=== PATIENT | female | born 1990 | race Two or more races ===

== ENCOUNTER 2024-05-06 09:18 | Outpatient (CLI) | payer OTHER, SELFPAY ==
--- NOTE | ~2024-05-06 | US_ITS ---
Pelvic ultrasound. Clinical History: First trimester , amenorrhea Technique: Realtime transabdominal and transvaginal scanning of the pelvis was performed. Color flow Doppler and Doppler spectral analysis were performed. Findings: The uterus is anteverted, and contains an early intrauterine gestation. [place]-rump length o f 4 mm corresponds to an estimated gestational age of 6 weeks 1 day. heart rate is 113 bpm.. The right ovary measures 6.4 x 4.4 x 4.4 cm. Simple right ovarian cyst measures 2.8 cm in diameter. The left ovary is not visualized. No significant left ovarian or adnexal mass is seen. There is no evidence of free fluid in the cul de sac. Impression: Live intrauterine gestation, with estimated gestational age of 6 weeks 1 day. heart rate is 113 bpm. Reviewed, dictated and finalized at [facility]. Impression: Live intrauterine gestation, with estimated gestational age of 6 weeks 1 day. F etal heart rate is 113 bpm.
== END 2024-05-06 09:19 | disposition home or self-care (01) ==
LOC: MICIMG 09:20
PROVIDERS: PCP Obstetrics & Gynecology; Visit Provider Obstetrics & Gynecology
DX: N18.2 Chronic kidney disease, stage 2 (mild) (principal)
CPT/HCPCS: 76801; 76817

== ENCOUNTER 2024-05-16 10:29 | Outpatient (CLI) | payer OTHER, SELFPAY ==
[2024-05-16 11:57] LABS: HIV 1/2 Ab P24 Ag Result Negative (Negative)
[2024-05-16 12:05] LABS: Hepatitis B Surface Antigen Negative (Negative)
[2024-05-16 12:10] LABS: Hepatitis B Surface Antigen 0.09 S/C; Rubella IgG Antibody > 110.0 IU/ML
[2024-05-16 17:54] LABS: Rapid Plasma Reagin Non-Reactive (NonReactive)
[2024-05-17 12:52] LABS: Varicella IgG Antibody <1.00 S/CO
== END 2024-05-16 10:30 | disposition home or self-care (01) ==
LOC: ANHLAB 10:34
PROVIDERS: PCP Obstetrics & Gynecology; Visit Provider Obstetrics & Gynecology
DX: N91.2 Amenorrhea, unspecified (principal)
CPT/HCPCS: 36415; 81220; 81329; 85660; 86592; 86644; 86703; 86762; 86787; 86850; 86900; 86901; 87086; 87340; G0432

== ENCOUNTER 2024-09-03 10:19 | Outpatient (CLI) | payer OTHER, SELFPAY ==
[2024-09-03 12:00] LABS: Glucose 1 Hour PP 50gm Dose 120 mg/dL
[2024-09-03 12:13] LABS: Basophils Percent Auto 0.1 % (0.2-1.2); Eosinophils Absolute Auto 0.1 K/mm3 (0-0.3); Eosinophils Percent Auto 0.5 % (0-4.4); Hematocrit 37.4 % (37.0-47.0); Immature Granulocyte Absolute 0.06 K/mm3 (0.00-0.031); Immature Granulocyte Percent A 0.6 % (0-0.5); Lymphocytes Absolute Auto 1.75 K/mm3 (0.9-3.2); Lymphocytes Percent Auto 18.3 % (18.3-44.2); Mean Corpuscular HGB Conc 32.1 g/dl (32-36); Mean Corpuscular Hemoglobin 29.2 pg (26-34); Mean Platelet Volume 10.9 fl (7.4-10.4); Monocytes Absolute Auto 0.4 K/mm3 (0.1-0.6); Neutrophils Absolute Auto 7.3 K/mm3 (1.3-6.7); Neutrophils Percent Auto 76.5 % (45.5-73.1); Platelet Count Result 227 k/mm3 (150-375); Red Blood Count 4.11 M/mm3 (4.2-5.4); White Blood Count 9.6 K/mm3 (4.5-10.0)
== END 2024-09-03 10:20 | disposition home or self-care (01) ==
LOC: ANHLAB 10:20
PROVIDERS: Visit Provider Obstetrics & Gynecology
DX: N91.2 Amenorrhea, unspecified (principal)
CPT/HCPCS: 36415; 82947; 85025; 86747

== ENCOUNTER 2024-10-10 10:05 | Outpatient (CLI) | payer OTHER, SELFPAY ==
[2024-10-10 11:51] LABS: Basophils Percent Auto 0.2 % (0.2-1.2); Eosinophils Percent Auto 0.3 % (0-4.4); Hematocrit 36.2 % (37.0-47.0); Hemoglobin 11.9 g/dL (12.0-15.0); Immature Granulocyte Absolute 0.07 K/mm3 (0.00-0.031); Immature Granulocyte Percent A 0.7 % (0-0.5); Lymphocytes Absolute Auto 1.67 K/mm3 (0.9-3.2); Lymphocytes Percent Auto 17.4 % (18.3-44.2); Mean Corpuscular HGB Conc 32.9 g/dl (32-36); Mean Corpuscular Hemoglobin 29.5 pg (26-34); Mean Corpuscular Volume 89.6 fl (80-100); Mean Platelet Volume 10.9 fl (7.4-10.4); Monocytes Absolute Auto 0.3 K/mm3 (0.1-0.6); Monocytes Percent Auto 3.1 % (2.6-8.5); Neutrophils Absolute Auto 7.5 K/mm3 (1.3-6.7); Neutrophils Percent Auto 78.3 % (45.5-73.1); Platelet Count Result 200 k/mm3 (150-375); Red Blood Count 4.04 M/mm3 (4.2-5.4); Red Cell Distribution Width 14.6 % (11.5-14.5); White Blood Count 9.6 K/mm3 (4.5-10.0)
[2024-10-10 11:53] LABS: Glucose 1 Hour PP 50gm Dose 132 mg/dL
[2024-10-10 12:52] LABS: HIV 1/2 Ab P24 Ag Result Negative (Negative)
[2024-10-10 13:34] LABS: Syphilis IgG/IgM Antibody Negative (Negative)
== END 2024-10-10 10:06 | disposition home or self-care (01) ==
LOC: ANHLAB 10:06
PROVIDERS: Visit Provider Obstetrics & Gynecology
DX: Z34.90 Encounter for supervision of normal pregnancy, unspecified, unspecified trimester (principal)
CPT/HCPCS: 36415; 82947; 85025; 86592; 86593; 86703; G0432

== ENCOUNTER 2024-12-24 09:09 | Outpatient (CLI) | payer OTHER, SELFPAY ==
[2024-12-24 09:58] LABS: Basophils Percent Auto 0.1 % (0.2-1.2); Eosinophils Percent Auto 0.3 % (0-4.4); Hematocrit 36.9 % (37.0-47.0); Immature Granulocyte Absolute 0.05 K/mm3 (0.00-0.031); Immature Granulocyte Percent A 0.5 % (0-0.5); Lymphocytes Absolute Auto 1.81 K/mm3 (0.9-3.2); Lymphocytes Percent Auto 19.7 % (18.3-44.2); Mean Corpuscular HGB Conc 32.5 g/dl (32-36); Mean Corpuscular Hemoglobin 28.8 pg (26-34); Mean Corpuscular Volume 88.5 fl (80-100); Mean Platelet Volume 10.8 fl (7.4-10.4); Monocytes Absolute Auto 0.5 K/mm3 (0.1-0.6); Neutrophils Absolute Auto 6.9 K/mm3 (1.3-6.7); Neutrophils Percent Auto 74.4 % (45.5-73.1); Platelet Count Result 183 k/mm3 (150-375); Red Blood Count 4.17 M/mm3 (4.2-5.4); Red Cell Distribution Width 15.7 % (11.5-14.5); White Blood Count 9.2 K/mm3 (4.5-10.0)
[2024-12-24 11:19] LABS: Syphilis IgG/IgM Antibody Negative (Negative)
[2024-12-24 11:21] LABS: HIV 1/2 Ab P24 Ag Result Negative (Negative)
== END 2024-12-24 09:10 | disposition home or self-care (01) ==
PROVIDERS: Visit Provider Obstetrics & Gynecology
DX: Z34.93 Encounter for supervision of normal pregnancy, unspecified, third trimester (principal); Z3A.00 Weeks of gestation of pregnancy not specified
CPT/HCPCS: 36415; 85025; 86593; 86703; 86850; 86900; 86901; G0432

== ENCOUNTER 2024-12-25 09:27 | Inpatient (IN) | payer OTHER, SELFPAY ==
[2024-12-25] VITALS (53 sets, daily range): BP systolic 79–128; BP diastolic 40–78; PULSE 40–149; RESP 16–20; TEMP 36.1–36.4; O2SAT 91–100; BMI 45.3
[2024-12-25] MEDS: ACETAMINOPHEN 500 MG TABLET 1000 MG PO (10:21)
[2024-12-25] MEDS: LACTATED RINGERS 1,000 ML 125 ML IV CONT ×2 (10:40→11:52)
--- NOTE | 2024-12-25 10:48 | LDADM ---
This patient, Deanne Noyola, was admitted to Labor/Delivery/Recovery 120 on 12/25/24 at 09:27. Plans for labor, pain management and were discussed with patient. Patient/family oriented to hospital policies and general routines including ID bracelet, bed and alarms, visiting hours, pain management, procedures, bathroom and other care routines, personal items, smoking policy, room service/diet and guest tray routines, infant security routines, and visiting hours. Patient/Family are encouraged to report perceived risks to care and to ask questions if they do not understand what they are told or what they should do. See OBIX for further documentation.
--- NOTE | 2024-12-25 10:52 | PM.IMHP ---
H&P: HPI History of Present Illness Date/Time: 12/25/24 10:52 34-year-old female 2 para 1001 at 39 weeks gestation presents for repeat delivery. First delivery performed in [place] without issue. Her has been without complication and records are on the chart. Chief Complaint: Review of Systems Review of Systems: All systems reviewed & are unremarkable except as noted in HPI and below PMFSH Past Medical History Medical History Hernia age 12 left groin Surgical History Surgical History Delivery by section (04/19/22) Family History Family History Father Hypertension Mother Diabetes mellitus Social History Social History Smoking status: Never smoker Second hand tobacco smoke exposure: No Alcohol intake: never Substance use: never Substance use type: does not use Do You Feel Safe in your Home?: Yes Lack of Transportation: No Lack of Food: Never True Current Housing: I Have Housing Concerned About Future Housing: No Difficulty Paying Gas/Electric Bills: No Difficulty Paying for Meds: No Currently Unemployed: No Education: Associate Degree Difficulty w/ Childcare or Family Care: No Living arrangements: with family Additional living arrangements comments: Occupation/Education: other Additional occupation/education comments: stay at home mom Gender identity (if verbalized by the patient): Female Sexual Orientation (if Verbalized by the Patient): Straight or Heterosexual Spiritual care concerns: No Meds Home Medications and Allergies Home Medications ?Medication ?Instructions ?Recorded ?Confirmed ?Type vit no.95-ferrous 1 tablet PO DAILY 11/28/24 12/10/24 History fumarate 28 mg-folic acid 800 mcg tablet () Allergies Allergy/AdvReac Type Severity Reaction Status Date / Time No Known Allergies Allergy Verified 12/17/24 16:21 Vital Signs Vital Signs - 24 hr 12/25/24 10:30 Pulse Rate 80 Blood Pressure 126/74 Exam Const: General: cooperative, healthy appearing and comfortable Resp: Effort & Inspection: normal respiratory effort Auscultation: clear to auscultation bilaterally Cardio: Rate: regular rate Rhythm: regular rhythm GI: Inspection: normal to inspection Auscultation: normal bowel sounds : Bimanual exam- vagina & uterus: enlarged ( fundal height 40cm, heart tone 140) Assessment and Plan Assessment and plan (1) 39 weeks gestation of : Code(s): Z3A.39 - 39 weeks gestation of Status: Acute (2) History of section, low transverse: Code(s): Z98.891 - History of uterine scar from previous surgery Status: Acute Plan proceed with rePete low-transverse section
--- NOTE | 2024-12-25 10:54 | WPDHPUPDATE1 ---
History and Physical Update Update Date/Time: 12/25/24 10:54 History and Physical has been reviewed, including an updated exam of the patient. There are NO changes in the patient's condition. Risks, benefits, and alternatives have been discussed and questions answered. Patient agrees to proceed with procedure.
--- NOTE | 2024-12-25 12:36 | P.PNAN_ITS ---
Anes - Initial Pre Proc Eval Procedure: Operation Date: 12/25/24 12:00 Proposed Procedures p Repeat Section - Brown Armstrong MD Date/Time: 12/25/24 12:36 Surgeon: Brown Armstrong MD Pre Op Diagnosis: C/S Patient Data Age: 34 Gender: F Height: 1.6 m Weight: 116 kg Last Vital Signs Pulse 80 12/25/24 10:30 BP 126/74 12/25/24 10:30 O2 Del Method Room Air 12/25/24 11:22 Allergies Allergy/AdvReac Type Severity Reaction Status Date / Time No Known Allergies Allergy Verified 12/17/24 16:21 Home Medications ?Medication ?Instructions ?Recorded ?Confirmed ?Type vit no.95-ferrous 1 tablet PO DAILY 11/28/24 12/10/24 History fumarate 28 mg-folic acid 800 mcg tablet () Patient hx anesthesia problems: none Family hx anesthesia problems: none Results Review: All pre-operative results and documents have been reviewed as part of the pre- operative evaluation. [facility] [place] Past Medical History Medical History Hernia age 12 left groin Surgical History Surgical History Delivery by section (04/19/22) Family History Family History Father Hypertension Mother Diabetes mellitus Social History Social History Smoking status: Never smoker Second hand tobacco smoke exposure: No Alcohol intake: never Substance use: never Substance use type: does not use Do You Feel Safe in your Home?: Yes Lack of Transportation: No Lack of Food: Never True Current Housing: I Have Housing Concerned About Future Housing: No Difficulty Paying Gas/Electric Bills: No Difficulty Paying for Meds: No Currently Unemployed: No Education: Associate Degree Difficulty w/ Childcare or Family Care: No Living arrangements: with family Additional living arrangements comments: Occupation/Education: other Additional occupation/education comments: stay at home mom Gender identity (if verbalized by the patient): Female Sexual Orientation (if Verbalized by the Patient): Straight or Heterosexual Spiritual care concerns: No Anes - Eval Final PreProcedure Day of Procedure 12/25/24 12:36 Patient weight: obese Heart: regular rate and rhythm Lungs: clear to auscultation and normal air movement Airway: Mallampati scale class II Neurological: alert and oriented Last oral intake: >/= 8 hours ASA classification: III Emergent: no Anesthetic plan: proceed Anesthesia type and monitoring: regional spinal and standard monitoring Results Review: All pre-operative results and documents have been reviewed as part of the pre- operative evaluation. Informed Consent: The patient's anesthetic plan and its attendant risks and benefits were discussed with the patient/family/POA. Questions were solicited and answers provided to the satisfaction of the patient/family/POA.
[2024-12-25] MEDS: ONDANSETRON INJ 4 MG/2 ML VIAL IV PUSH (12:52)
[2024-12-25] MEDS: FAMOTIDINE 20 MG/2 ML VIAL IV PUSH (12:52)
[2024-12-25] MEDS: ceFAZolin 2 GM/D5W 50 ML 2 GM/50 ML BAG IVPB (13:09)
[2024-12-25] MEDS: OXYTOCIN 30 UNITS/NS 500 ML 30 UNITS/500 ML BAG 125 UNITS IV CONT (14:53)
--- NOTE | 2024-12-25 15:18 | P.PCNOB_ITS ---
OB - Delivery Note Procedure Delivery date: 12/25/24 Pre-op diagnosis: Previous Delivery Post-op Diagnosis: Same Procedure Performed: Repeat Secondary branch: low cervical, transverse Surgeon: Brown Armstrong MD Anesthesia type: Spinal Description of Procedure/Findings: patient prepped draped usual manner for this procedure. Pfannenstiel incision was made and carried down to the fascia which was then extended bilaterally the skin incision. Fascia was then sharply and bluntly dissected away from the rectus muscles. Peritoneum readily entered and bladder flap formed without difficulty. lower segment was incised and extended bilaterally. Vertex was delivered without difficulty and rest of baby as well. Placenta removed manually and membranes and clots removed as well. Uterus was well contracted and closed using 0 Monocryl running interlocking manner with good approximation hemostasis noted. Uterus turned the abdomen and again inspected and noted be hemostatic. All subfascial tissue was cleared of membranes and clots the fascia was approximated 0 Vicryl from left angle midline in the right of midline with good approximation noted. Subcutaneous tissue was approximated 0 plain suture and elena were used to approximate the skin edges. Patient was then sent to recovery room in stable condition. Specimen: No Estimated Blood Loss: 460 Drains: Yes ( [place]) Packing: No Pathology: None sent Complications: No immediate complications Condition: Stable Disposition: PACU [place] Baby Gestational Age by Date: 39 gender: Male Weight (pounds): 8 Weight (ounces): 13 presentation: vertex Placenta delivery description: Manual Removal Cord Vessel Description: 3 Vessels score one minute: 8 score five minutes: 9
[2024-12-25] MEDS: ACETAMINOPHEN 325 MG TABLET 650 MG PO (16:48)
[2024-12-25] MEDS: KETOROLAC 15 MG/ML VIAL (*BKC) IV PUSH (16:49)
--- NOTE | 2024-12-25 17:00 | OBPPTRN ---
Patient transferred to post room #282 via stretcher. Support person present. Oriented to unit, room, information board, rooming in, admission packet and security measures. Patient verbalizes understanding.
[2024-12-25] MEDS: DOCUSATE SODIUM 100 MG CAPSULE PO (18:01)
[2024-12-25] MEDS: SIMETHICONE 80 MG TAB.CHEW PO (18:01)
[2024-12-25] MEDS: diphenhydrAMINE HCl INJ 50 MG/ML VIAL 25 MG IV PUSH (20:30)
[2024-12-26 01:20] VITALS: BP 109/63; PULSE 94; RESP 16; TEMP 36.4; O2SAT 98
[2024-12-26] MEDS: KETOROLAC 15 MG/ML VIAL (*BKC) IV PUSH ×3 (02:19→14:25)
[2024-12-26] MEDS: ACETAMINOPHEN 325 MG TABLET 650 MG PO ×4 (02:19→20:34)
[2024-12-26 05:20] LABS: Basophils Percent Auto 0.1 % (0.2-1.2); Eosinophils Percent Auto 0.1 % (0-4.4); Hematocrit 28.7 % (37.0-47.0); Hemoglobin 9.2 g/dL (12.0-15.0); Immature Granulocyte Absolute 0.06 K/mm3 (0.00-0.031); Immature Granulocyte Percent A 0.4 % (0-0.5); Lymphocytes Absolute Auto 1.28 K/mm3 (0.9-3.2); Lymphocytes Percent Auto 9.5 % (18.3-44.2); Mean Corpuscular HGB Conc 32.1 g/dl (32-36); Mean Corpuscular Hemoglobin 29.2 pg (26-34); Mean Corpuscular Volume 91.1 fl (80-100); Mean Platelet Volume 11.7 fl (7.4-10.4); Monocytes Absolute Auto 0.4 K/mm3 (0.1-0.6); Neutrophils Absolute Auto 11.7 K/mm3 (1.3-6.7); Neutrophils Percent Auto 86.9 % (45.5-73.1); Platelet Count Result 160 k/mm3 (150-375); Red Blood Count 3.15 M/mm3 (4.2-5.4); Red Cell Distribution Width 15.9 % (11.5-14.5); White Blood Count 13.5 K/mm3 (4.5-10.0)
[2024-12-26 08:15] VITALS: BP 110/65; PULSE 92; RESP 18; TEMP 37.3; O2SAT 99
[2024-12-26] MEDS: SIMETHICONE 80 MG TAB.CHEW PO ×3 (08:16→17:12)
[2024-12-26] MEDS: DOCUSATE SODIUM 100 MG CAPSULE PO ×2 (08:16→17:12)
[2024-12-26] MEDS: POLYSACCHARIDE IRON COMPLEX 150 MG CAPSULE PO ×2 (08:16→17:12)
[2024-12-26] MEDS: MULTIVIT/MIN/PREN/FOL AC/IRON TABLET 1 TAB PO (08:16)
--- NOTE | 2024-12-26 10:54 | P.PNOB_ITS ---
OB - PN: Subj Subjective Date/time seen: 12/26/24 10:54 S: Pain well controlled. Ambulating and diet without difficulty. . O: VSS afebrile Abdomen: Positive bowel sounds soft bandage intact and dry Labs: Noted A: Doing well postoperative day with repeat delivery P: Continue routine postop/postoperative care OB - PN: Obj Data Labs 12/26/24 04:31 Labs: Laboratory Results - last 24 hr 12/26/24 04:31 WBC 13.5 H RBC 3.15 L Hgb 9.2 L Hct 28.7 L MCV 91.1 MCH 29.2 MCHC 32.1 RDW 15.9 H Plt Count 160 MPV 11.7 H Immature Gran % (Auto) 0.4 Neut % (Auto) 86.9 H Lymph % (Auto) 9.5 L [place] % (Auto) 3.0 Eos % (Auto) 0.1 Baso % (Auto) 0.1 L Lymph # (Auto) 1.28 [place] # (Auto) 0.4 Eos # (Auto) 0.0 Baso # (Auto) 0.0 Abs Immat Gran (auto) 0.06 H Absolute Neuts (auto) 11.7 H Absolute Nucleated RBC 0.000 Nucleated RBC % 0.0 OB - PN A/P Time Spent With Patient Time: Total time spent is greater than 50% in coordination of care (as documented) at patient's floor/unit and/or counseling patient:
[2024-12-26 12:22] VITALS: BP 112/64; PULSE 85; RESP 16; TEMP 37.3; O2SAT 99
--- NOTE | 2024-12-26 12:22 | PC.NURSE ---
Father of baby in room, he translated for mother. Consulted with patient to assess needs related to . Discussed with mother her successes, concerns and any questions she has. Per mother she feels that having baby in cradle position, that he is not latched deep enough, she was worried that her breast tissue would cause an issue with baby's nose and breathing. Suggested putting baby in football, baby latched optimally to her right breast without any pain to mother or any breast tissue blocking his nares. We reviewed working with the , supporting breast, protecting her nipples with an optimal deep latch, good positioning, and good hand washing. Encouraged understanding the benefits of skin to skin, responding to feeding cues, frequencies of feeding 8-12 times in 24 hours (approximately 2-3 hours), duration of feedings, milk production, intake/output feeding sheet and signs of adequate intake encouraging swallowing at the breast. Reviewed positioning and alignment, supporting breast, off-centered (asymmetrical latch) and leading with the chin with big, open, wide gape. Education given to the mother of how to visualize the suckling (with good rocking jaw motion) swallows (dropping of the lower jaw) and how to listen for drinking at the breast (the ka sound). The was [able] to maintain latch without discomfort to mother. Nipple care reviewed with optimal latch, good positioning and using clean hands when touching her breast. Resources used to facilitate learning were used from the [visual handouts/ tool/mom and baby guide]. Mother voiced understanding of the education shared, to call for assistance if the does not latch or if there is discomfort with . Reported to the Primary RN.
[2024-12-26] MEDS: LIDOCAINE 5% PATCH 1 PATCH TRANSDERM (12:33)
--- NOTE | 2024-12-26 14:54 | WPDANLDPN2 ---
Anes-Prog Note L&D Date/Time: 12/26/24 14:54 Neuro status: Neuro function grossly intact. Cardiovascular status: normal Respiratory status: normal Airway patency: baseline Mental status: baseline Vital Signs: Last Vital Signs Temp 37.3 C 12/26/24 12:22 Pulse 85 12/26/24 12:22 Resp 16 12/26/24 12:22 BP 112/64 12/26/24 12:22 Pulse Ox 99 12/26/24 12:22 O2 Del Method Room Air 12/26/24 08:15 Pain score (VAS): 2 I/O: Intake & Output 12/25/24 12/26/24 12/26/24 23:59 07:59 15:59 Intake Total 480 Output Total 150 1250 400 Balance -150 -1250 80 Patient feedback: Patient satisfied with anesthetic care.
--- NOTE | 2024-12-26 14:54 | WPDANLDNPN2 ---
Anes-Prog Note L&D-Neuraxial Date/Time: 12/26/24 14:54 Patient feedback: Patient satisfied with post-operative pain management.
[2024-12-26] MEDS: IBUPROFEN 600 MG TABLET PO (20:34)
[2024-12-26 20:41] VITALS: BP 114/55; PULSE 90; RESP 16; TEMP 36.4; O2SAT 99
[2024-12-27] MEDS: ACETAMINOPHEN 325 MG TABLET 650 MG PO ×2 (04:17→10:24)
[2024-12-27] MEDS: IBUPROFEN 600 MG TABLET PO ×2 (04:17→10:24)
--- NOTE | 2024-12-27 07:58 | P.DS_ITS ---
DS: Admitting Diagnosis Discharge Date 12/27/2024 Admitting Diagnosis DS: Discharge Diagnosis Discharge Diagnosis (1) , delivered: Code(s): O80 - Encounter for full-term uncomplicated delivery Status: Acute OB - DS: Summary OB Procedures : None OB Procedures Intrapartum: low cervical, transverse OB Procedures: : None Peripartum Data Procedures: Procedures Operation Date: 12/25/24 12:00 Actual Procedure Side Surgeon p Section Not Applicable Brown Armstrong MD Time Spent with Patient Time attestation: Total time spent providing and/or coordinating discharge services: Discharge Plan Discharge Discharging Clinician: Brown Armstrong Patient Disposition: Home Activity: may shower, no straining, no driving, follow weight bearing status and pelvic rest Diet: as tolerated Wound Care Instructions: keep dressing dry Discharge Instructions: return office as scheduled for staple removal Patient Instructions: Antibiotic Form Patient Language: [place] Stand Alone Forms: General Discharge Information Follow-up/Referrals: Brown Armstrong MD [Physician] - 4 Weeks Discharge Medications: New hydrocodone-acetaminophen 5-325 mg Tablet 1 tablet PO Q3H PRN (Reason: Breakthrough Pain Rated 4-6) Qty: 20 0RF ibuprofen 600 mg Tablet 600 mg PO Q6H Qty: 30 0RF Continued PNV cmb#95-ferrous fumarate-FA [] 28 mg iron- 800 mcg tablet 1 tablet PO DAILY Date of admission: 12/25/24 09:27 Primary Care Provider: PHYSICIAN,FACSIMILE MACHINE OPERATOR Admitting Provider: Brown Armstrong Attending physician on admission: Brown Armstrong Condition: Stable
--- NOTE | 2024-12-27 08:45 | PC.NURSE ---
Father of baby in room, he translated for her. RN consulted with mother and father concerning needs and she shared her ability to independently latch infant optimally without pain. Mother is feeding appropriately for growth of and understands stimulating infant to eat if needed. Infant has had appropriate feedings in the last 24 hours meets the outcomes for weight, output, blood sugar and jaundice at this time. Reinforced understanding of milk production, transition of milk, signs of adequate intake, transition of stool, prevention/relief of engorgement, plugged ducts, mastitis, responsive watching for feeding cues, the different methods of stimulating to breastfeed 1-3 hours after the start of the last feeding, community resources, and when to call a provider using the resource of the feeding sheet along with the mom and baby guide. Mother voiced understanding of the information shared, is confident to continue effectively her infant at home, when to call for assistance, denies any additional assistance or education at this time. Reported to the Primary RN.
[2024-12-27] MEDS: POLYSACCHARIDE IRON COMPLEX 150 MG CAPSULE PO (08:53)
[2024-12-27] MEDS: SIMETHICONE 80 MG TAB.CHEW PO (08:53)
[2024-12-27] MEDS: DOCUSATE SODIUM 100 MG CAPSULE PO (08:54)
[2024-12-27] MEDS: HYDROcodone/acetaminophen (*CRX) 5-325 MG TABLET 1 TAB PO (08:54)
[2024-12-27] MEDS: MULTIVIT/MIN/PREN/FOL AC/IRON TABLET 1 TAB PO (08:54)
[2024-12-27 09:05] VITALS: BP 113/68; PULSE 86; RESP 18; TEMP 36.6; O2SAT 98
[2024-12-27] MEDS: TETANUS,DIPHTHERIA,AC PERTUSSIS ADULT (0.5 ML) BOOSTRIX IM (10:24)
[2024-12-28 10:21] VITALS: BP 130/88; PULSE 100; RESP 18; TEMP 36.6; O2SAT 99
== END 2024-12-27 12:08 | disposition home or self-care (01) | DRG 788 ==
LOC: ANHLDR 09:29 → ANHOB2 17:07
PROVIDERS: Admitting Provider Obstetrics & Gynecology; Visit Provider Obstetrics & Gynecology
PROC: 10D00Z1 Extraction of Products of Conception, Low, Open Approach (ICD-10-PCS; CPT 59514; principal; 2024-12-25 12:00)
DX: O34.219 Maternal care for unspecified type scar from previous cesarean delivery (principal); Z3A.39 39 weeks gestation of pregnancy; Z37.0 Single live birth
CPT/HCPCS: 36415; 85025; 90715; A9270; J0690; J1200; J1885; J2274; J2405; J2590; J7120